=== PATIENT | female | born 1950 | race Caucasian/White ===

== ENCOUNTER → 2017-01-26 | Outpatient (CLI) | payer MEDICARE, BC ==
--- NOTE | 2017-01-26 12:00 | BD ---
EXAMINATION TYPE: MG DEXA axial skeleton. DATE OF EXAM: 01/26/2017 COMPARISON: 07.12.2012 CLINICAL HISTORY: Z13.820 OSTEOPOROSIS Height: 58.3 IN Weight: 114 LBS FRAX RISK QUESTIONS: Alcohol (3 or more units per day): NO Family History (Parent hip fracture): UNKNOWN Glucocorticoids (More than 3mos): NO (Ex: prednisone, prednisolone, methylprednisolone, dexamethasone, and hydrocortisone). History of Fracture in Adulthood: NO Secondary Osteoporosis: NO 1. Type 1 Diabetes: NO 2. Hyperthyroidism: NO 3. Menopause before 45: NO 4. Malnutrition: NO 5. Chronic liver disease: NO Rheumatoid Arthritis: NO Current Tobacco Use: NO RISK FACTORS HISTORY OF: Family History of Osteoporosis: UNSURE Active: YES Diet low in dairy products/other sources of calcium: NO Postmenopausal woman: 45 YRS OLD Hyperparathyroidism: NO Adrenal Insufficiency: NO MEDICATIONS: Osteoporosis Medications: TOOK FOSAMAX FOR 7 YRS QUIT ABOUT 10 YRS AGO Additional Medications: HX OF CHEMO AND RADIATION [id number], VIT D, STATINS FOR CHOLESTEROL Additional History: HX OF ENDOMETRIAL/UTERINE CA , DIABETIC (DIET CONTROL) EXAM MEASUREMENTS: Bone mineral densitometry was performed using the [employer] System. Bone mineral density as measured about the Lumbar spine is: ----- L1-L4(G/cm2): 1.511 T Score Values are as follows: ----- L1: 0.9 ----- L2: 2.2 ----- L3: 4.2 ----- L4: 3.2 ----- L1-L4: 2.8 Bone mineral density has: Increased 8.1% since study of: 07.12.2012 Bone mineral density about the R hip (g/cm2): 0.942 Bone mineral density about the L hip (g/cm2): 0.954 T Score values are as follows: -----R Neck: -1.8 -----L Neck: -1.9 -----R Total: -0.5 -----L Total: -0.4 Bone mineral density has: Decreased -3.7% since study of: 07.12.2012 FRAX %'S: THERE IS A 10.8% CHANCE OF A MAJOR OSTEOPOROTIC FX AND A 1.8% CHANCE FOR A HIP FX...... PROBABILITY IN 10 YRS TIME IMPRESSION: Osteopenia (T Score between -2.5 and -1 as noted by T score values There is slightly increased risk of fracture and the patient may be considered for treatment. Re-Screen 2-5 years FOR BOTH OF HER HIPS AT THE NECK BOTH RT AND LT. 10 YEAR MAJOR OSTEOPOROTIC FRACTURE RISK: 10.8%. HIP FRACTURE RISK: 1.8%. NOTE: T-SCORE=SD OF THE YOUNG ADULT MEAN.
--- NOTE | 2017-01-30 07:23 | MM ---
Reason for exam: screening (asymptomatic). Last mammogram was performed 1 year and 1 month ago. History: Patient is postmenopausal, has history of endometrial cancer at age 60, history of other cancer, and is nulliparous. Family history of breast cancer in maternal aunt at age 70, breast cancer in mother at age 86, breast cancer in maternal aunt at age 60, and breast cancer in aunt. Physical Findings: A clinical breast exam by your physician is recommended on an annual basis and results should be correlated with mammographic findings. MG 3D Screening Mammo W/Cad Bilateral CC and MLO view(s) were taken. Prior study comparison: January 06, 2016, bilateral MG 3d screening mammo w/cad. June 21, 2015, left breast MG 3d diag mammo w/cad LT. The breast tissue is heterogeneously dense. This may lower the sensitivity of mammography. No significant changes when compared with prior studies. ASSESSMENT: Negative, BI-RAD 1 RECOMMENDATION: Routine screening mammogram of both breasts in 1 year.
== END | disposition home or self-care (01) ==
LOC: RADMAMWWP 10:12
PROVIDERS: ATTEND Family Medicine
DX: Z12.31 Encounter for screening mammogram for malignant neoplasm of breast (principal); Z13.820 Encounter for screening for osteoporosis; M85.80 Other specified disorders of bone density and structure, unspecified site
CPT/HCPCS: 77080; 77063; G0202

== ENCOUNTER → 2018-01-28 | Outpatient (CLI) | payer MEDICARE, BC ==
--- NOTE | 2018-01-29 10:19 | MM ---
Reason for exam: screening (asymptomatic). Last mammogram was performed 1 year ago. History: Patient is postmenopausal, has history of endometrial cancer at age 60, history of other cancer, and is nulliparous. Family history of breast cancer in maternal aunt at age 70, breast cancer in mother at age 86, breast cancer in maternal aunt at age 60, and breast cancer in aunt. Physical Findings: A clinical breast exam by your physician is recommended on an annual basis and results should be correlated with mammographic findings. MG 3D Screening Mammo W/Cad Bilateral CC and MLO view(s) were taken. Prior study comparison: January 26, 2017, bilateral MG 3d screening mammo w/cad. January 06, 2016, bilateral MG 3d screening mammo w/cad. The breast tissue is extremely dense which could obscure a lesion on mammography. There is chronic nodularity bilaterally. There is no dominant lesion. No significant changes when compared with prior studies. ASSESSMENT: Benign, BI-RAD 2 RECOMMENDATION: Routine screening mammogram of both breasts in 1 year. Manage patient on a clinical basis.
== END | disposition home or self-care (01) ==
LOC: RADMAMWWP 11:12
PROVIDERS: ATTEND Obstetrics & Gynecology
DX: Z12.31 Encounter for screening mammogram for malignant neoplasm of breast (principal); Z80.3 Family history of malignant neoplasm of breast
CPT/HCPCS: 77063; 77067

== ENCOUNTER → 2019-01-29 | Outpatient (CLI) | payer MEDICARE, BC ==
--- NOTE | 2019-01-31 14:32 | MM ---
Reason for exam: screening (asymptomatic). Last mammogram was performed 1 year ago. History: Patient is postmenopausal, has history of endometrial cancer at age 60, history of other cancer, and is nulliparous. Family history of breast cancer in maternal aunt at age 70, breast cancer in mother at age 86, breast cancer in maternal aunt at age 60, and breast cancer in aunt. Physical Findings: A clinical breast exam by your physician is recommended on an annual basis and results should be correlated with mammographic findings. MG 3D Screening Mammo W/Cad Bilateral CC and MLO view(s) were taken. Prior study comparison: January 28, 2018, bilateral MG 3d screening mammo w/cad. January 26, 2017, bilateral MG 3d screening mammo w/cad. The breast tissue is extremely dense which could obscure a lesion on mammography. There is chronic nodularity bilaterally. No individual nodule is more suspicious than another. No significant changes when compared with prior studies. ASSESSMENT: Benign, BI-RAD 2 RECOMMENDATION: Routine screening mammogram of both breasts in 1 year.
== END | disposition home or self-care (01) ==
LOC: RADMAMWWP 10:51
PROVIDERS: ATTEND Obstetrics & Gynecology
DX: Z12.31 Encounter for screening mammogram for malignant neoplasm of breast (principal); Z80.3 Family history of malignant neoplasm of breast
CPT/HCPCS: 77063; 77067

== ENCOUNTER → 2020-03-09 | Outpatient (CLI) | payer MEDICARE, BC ==
--- NOTE | 2020-03-09 14:04 | MM ---
Reason for exam: screening (asymptomatic). Last mammogram was performed 1 year and 1 month ago. History: Patient is postmenopausal, has history of endometrial cancer at age 60, history of other cancer, and is nulliparous. Family history of breast cancer in maternal aunt at age 70, breast cancer in mother at age 86, breast cancer in maternal aunt at age 60, and breast cancer in aunt. Physical Findings: A clinical breast exam by your physician is recommended on an annual basis and results should be correlated with mammographic findings. MG 3D Screening Mammo W/Cad Bilateral CC and MLO view(s) were taken. Prior study comparison: January 29, 2019, bilateral MG 3d screening mammo w/cad. January 28, 2018, bilateral MG 3d screening mammo w/cad. The breast tissue is extremely dense which could obscure a lesion on mammography. There is no discrete abnormality. ASSESSMENT: Negative, BI-RAD 1 RECOMMENDATION: Routine screening mammogram of both breasts in 1 year.
== END | disposition home or self-care (01) ==
LOC: RADMAMWWP 11:04
PROVIDERS: ATTEND Obstetrics & Gynecology
DX: Z12.31 Encounter for screening mammogram for malignant neoplasm of breast (principal); Z80.3 Family history of malignant neoplasm of breast
CPT/HCPCS: 77063; 77067

== ENCOUNTER → 2021-05-16 | Outpatient (CLI) | payer MEDICARE, BC ==
--- NOTE | 2021-05-16 13:37 | BD ---
EXAMINATION TYPE: Axial Bone Density DATE OF EXAM: 05/16/2021 COMPARISON: 01.26.2017 CLINICAL HISTORY: 71 YR OLD FEMALE......CODE: M89.8 OTHER BD DISORDER ,Z85.42 CANCER Height: 58.3 Weight: 113 FRAX RISK QUESTIONS: Glucocorticoids (More than 3mos): IN THE PAST FOR 10 YRS, NONE NOW (Ex: prednisone, prednisolone, methylprednisolone, dexamethasone, and hydrocortisone). History of Fracture in Adulthood: YES Secondary Osteoporosis: YES 3. Menopause before 45: YES Current Tobacco Use: QUIT LONG AGO RISK FACTORS HISTORY OF: History of Wrist Fracture: HX OF LT WRIST FX, JANUARY 2021 Postmenopausal woman: YES, AT ABOUT 41 NATURAL Take estrogen and/or progesterone medications: YES, FOR ABOUT 7 YRS Hyperparathyroidism: NO Adrenal Insufficiency: NO MEDICATIONS: Prednisone or other steroids: ASTHMA, IN THE PAST, ALLERGIC TO STEROIDS NOW Osteoporosis Medications: IN THE PAST FOR ABOUT 10 YRS, NONE NOW Additional Medications: HX OF CHEMO AND RADIATION, 2010,2011, STATINS FOR CHOLESTEROL, Additional History: ENDOMETRIAL/UTERINE CANCER, DIABETIC, METFORMIN FOR ABOUT 10 YRS NONE NOW, DIET C ONTROLLED, STATIN FOR CHOLESTEROL, VIT D AND CALCIUM EXAM MEASUREMENTS: Bone mineral densitometry was performed using the [employer] System. Bone mineral density as measured about the Lumbar spine is: ----- L1-L4(G/cm2): 1.599 T Score Values are as follows: ----- L1: 1.9 ----- L2: 3.3 ----- L3: 4.7 ----- L4: 4.0 ----- L1-L4: 3.5 Bone mineral density has: Increased 5.5% since study of: 01.26.2017 Bone mineral density about the R hip (g/cm2): 0.969 Bone mineral density about the L hip (g/cm2): 1.004 T Score values are as follows: -----R Neck: -1.6 -----L Neck: -1.8 -----R Total: -0.3 -----L Total: 0.0 Bone mineral density has: Increased 4.1% since study of: 01.26.2017 FRAX%s: THERE IS A 26.4% CHANCE FOR A MAJOR OSTEOPOROTIC FX AND A 6.2% FOR HIP......PROBABILITY FO R FX IN 10 YRS TIME IMPRESSION: No evidence for osteoporosis or osteopenia NOTE: T-SCORE=SD OF THE YOUNG ADULT MEAN.
--- NOTE | 2021-05-17 13:58 | MM ---
Reason for exam: screening (asymptomatic). Last mammogram was performed 1 year and 2 months ago. History: Patient is postmenopausal, has history of endometrial cancer at age 60, history of other cancer, and is nulliparous. Family history of breast cancer in maternal aunt at age 70, breast cancer in mother at age 86, breast cancer in maternal aunt at age 60, and breast cancer in aunt. Took hormonal contraceptives for 7 years. Physical Findings: A clinical breast exam by your physician is recommended on an annual basis and results should be correlated with mammographic findings. MG 3D Screening Mammo W/Cad Bilateral CC and MLO view(s) were taken. Prior study comparison: March 09, 2020, bilateral MG 3d screening mammo w/cad. January 29, 2019, bilateral MG 3d screening mammo w/cad. The breast tissue is extremely dense which could obscure a lesion on mammography. There is chronic nodularity bilaterally. No significant changes when compared with prior studies. ASSESSMENT: Benign, BI-RAD 2 RECOMMENDATION: Routine screening mammogram of both breasts in 1 year. Patient should continue monthly self breast exams. A negative report should not preclude additional follow up of suspicious palpable abnormalities.
== END | disposition home or self-care (01) ==
LOC: RADMAMWWP 10:02
PROVIDERS: ATTEND Family Medicine
DX: Z12.31 Encounter for screening mammogram for malignant neoplasm of breast (principal); M89.8X8 Other specified disorders of bone, other site; Z85.42 Personal history of malignant neoplasm of other parts of uterus
CPT/HCPCS: 77063; 77067; 77080

== ENCOUNTER → 2022-05-17 | Outpatient (CLI) | payer MEDICARE, BC ==
--- NOTE | 2022-05-18 19:06 | MM ---
Reason for Exam: Screening (asymptomatic). Last screening mammogram was performed 12 month(s) ago. Patient History: Menarche at age 8. Patient has no children. Left ovary removed at age 60. Right ovary removed at age 60. Hysterectomy at age 60. Postmenopausal. Other cancer. Endometrial cancer, age 60. Patient used Hormonal Contraceptives for 7 years. Maternal aunt had breast cancer, age 70. Maternal aunt had breast cancer. Maternal aunt had breast cancer, age 60. Mother had breast cancer, age 86. Risk Values: Nidhi 5 year model risk: 3.8%. NCI Lifetime model risk: 8.6%. Prior Study Comparison: 01/06/2016 Bilateral Screening Mammogram, [facility]. 01/26/2017 Bilateral Screening Mammogram, [facility]. 01/28/2018 Bilateral Screening Mammogram, [facility]. 01/29/2019 Bilateral Screening Mammogram, [facility]. 03/09/2020 Bilateral Screening Mammogram, [facility]. 05/16/2021 Bilateral Screening Mammogram, [facility]. Tissue Density: The breast tissue is heterogeneously dense. This may lower the sensitivity of mammography. Findings: Analyzed By CAD. There is chronic nodularity on both sides. There is no suspicious group of microcalcifications or new suspicious mass in either breast. Overall Assessment: Benign, BI-RAD 2 Management: Screening Mammogram of both breasts in 1 year. 1. Patient should continue monthly self breast exams. 2. A clinical breast exam by your physician is recommended on an annual basis. This exam should not preclude additional follow-up of suspicious palpable abnormalities. 3. Note that per NCCN guidelines, a five-year risk assessment greater than 1.67% is used to assess eligibility for a risk reducing agent. Electronically signed and approved by: Jasper Valencia M.D. Radiologist
== END | disposition home or self-care (01) ==
LOC: RADMAMWWP 09:55
PROVIDERS: ATTEND Family Medicine
DX: Z12.31 Encounter for screening mammogram for malignant neoplasm of breast (principal); Z78.0 Asymptomatic menopausal state; Z80.3 Family history of malignant neoplasm of breast
CPT/HCPCS: 77063; 77067

== ENCOUNTER → 2022-12-11 | Outpatient (CLI) | payer MEDICARE, BC ==
[2022-12-11 19:51] LABS: HCT 43.6 % (37.2-46.3); HGB 13.8 g/dL (12.0-15.0); MCH 28.5 pg (27.0-32.0); MCHC 31.7 g/dL (32.0-37.0); MCV 89.9 fL (80.0-97.0); Mean Platelet Volume 10.3 fL (9.5-12.2); NRBC Per 100 WBC 0 /100 WBCS (0.0-0.0); Platelet Count 219 X 10*3/uL (140-440); RBC 4.85 X 10*6/uL (4.10-5.20); RDW 13.2 % (11.5-14.5); WBC 5.58 X 10*3/uL (4.50-10.00)
[2022-12-11 20:40] LABS: T4, Free (Free Thyroxine) 1.52 ng/dL (0.800-1.800)
[2022-12-11 20:45] LABS: % Iron Saturation 23.76 (12.00-45.00); African American GFR (CKD) 93.9 (60.0-200.0); Albumin 4.5 g/dL (3.8-4.9); Albumin/Globulin Ratio 1.85 (1.60-3.17); Anion Gap 11.9 mmol/L (10.00-18.00); BUN/Creat Ratio 28.59 Ratio (12.00-20.00); Blood Urea Nitrogen 20.9 mg/dL (9.0-27.0); Calcium 9.7 mg/dL (8.7-10.3); Carbon Dioxide 26.3 mmol/L (20.0-27.5); Globulin 2.4 g/dL (1.6-3.3); Potassium 4.8 mmol/L (3.5-5.5); Total Bilirubin 0.4 mg/dL (0.30-1.20)
== END | disposition home or self-care (01) ==
LOC: LABWHC1 13:06
PROVIDERS: ATTEND Psychiatry & Neurology Neurology
DX: G62.9 Polyneuropathy, unspecified (principal); E61.1 Iron deficiency; R53.83 Other fatigue
CPT/HCPCS: 36415; 80053; 82607; 82728; 83540; 83550; 84207; 84439; 84443; 84466; 84481; 85027; 86334

== ENCOUNTER → 2023-06-11 | Outpatient (CLI) | payer MEDICARE, BC ==
--- NOTE | 2023-06-11 11:38 | MM ---
Reason for Exam: Screening (asymptomatic). Last mammogram was performed 1 year(s) and 1 month(s) ago. Patient History: Menarche at age 8. Patient has no children. Left ovary removed at age 60. Right ovary removed at age 60. Hysterectomy at age 60. Postmenopausal. Previous chemotherapy at age 60. Patient used Hormonal Contraceptives for 7 years. Maternal aunt had breast cancer, age 70. Maternal aunt had breast cancer. Maternal aunt had breast cancer, age 60. Mother had breast cancer, age 86. Risk Values: Nidhi 5 year model risk: 3.8%. NCI Lifetime model risk: 8.1%. Prior Study Comparison: 03/09/2020 Bilateral Screening Mammogram, [facility]. 05/16/2021 Bilateral Screening Mammogram, [facility]. 05/17/2022 Bilateral MG 3D screening mammo w/cad, [facility]. Tissue Density: The breast tissue is heterogeneously dense. This may lower the sensitivity of mammography. Findings: Analyzed By CAD. There is no suspicious group of microcalcifications or new suspicious mass. Overall Assessment: Negative, BI-RAD 1 Management: Screening Mammogram of both breasts in [address] [facility] will attempt to contact patient to return for supplemental views and ultrasound if indicated. Patient should continue monthly self-breast exams. A clinical breast exam by your physician is recommended on an annual basis. This exam should not preclude additional follow-up of suspicious palpable abnormalities. Note on Nidhi scores and lifetime risk: 1. A Nidhi score greater than 3% is considered moderate risk. If this is the case, consider specialist referral to assess eligibility for a risk reducing agent. 2. If overall lifetime risk for the development of breast cancer is 20% or higher, the patient may qualify for future screening with alternating mammogram and breast MRI. Electronically signed and approved by: Silverio Whiting DO
== END | disposition home or self-care (01) ==
LOC: RADMAMWWP 10:17
PROVIDERS: ATTEND Family Medicine
DX: Z12.31 Encounter for screening mammogram for malignant neoplasm of breast (principal); Z78.0 Asymptomatic menopausal state; Z80.3 Family history of malignant neoplasm of breast
CPT/HCPCS: 77063; 77067

== ENCOUNTER → 2024-06-13 | Outpatient (CLI) | payer MEDICARE, BC ==
--- NOTE | 2024-06-16 17:49 | MM ---
Reason for Exam: Screening (asymptomatic). Last screening mammogram was performed 12 month(s) ago. Patient History: Menarche at age 8. Patient has no children. Left ovary removed at age 60. Right ovary removed at age 60. Hysterectomy at age 60. Postmenopausal. Previous chemotherapy at age 60. Patient used Hormonal Contraceptives for 7 years. Paternal aunt had breast cancer, age 70. Paternal aunt had breast cancer. Paternal aunt had breast cancer, age 60. Mother had breast cancer, age 86. Risk Values: Nidhi 5 year model risk: 3.8%. NCI Lifetime model risk: 7.6%. Prior Study Comparison: 05/16/2021 Bilateral Screening Mammogram, [facility]. 05/17/2022 Bilateral MG 3D screening mammo w/cad, [facility]. 06/11/2023 Bilateral MG 3D screening mammo w/cad, [facility]. Tissue Density: The breasts are heterogeneously dense, which may obscure small masses. Findings: Analyzed By CAD. Areas of asymmetric density are unchanged. There is no suspicious group of microcalcifications or new suspicious mass in either breast. Overall Assessment: Benign, BI-RAD 2 Management: Screening Mammogram of both breasts in 1 year. See note below in regards to patient's increased 5 year Nidhi score. Patient should continue monthly self-breast exams. A clinical breast exam by your physician is recommended on an annual basis. This exam should not preclude additional follow-up of suspicious palpable abnormalities. Note on Nidhi scores and lifetime risk: 1. A Nidhi score greater than 3% is considered moderate risk. If this is the case, consider specialist referral to assess eligibility for a risk reducing agent. 2. If overall lifetime risk for the development of breast cancer is 20% or higher, the patient may qualify for future screening with alternating mammogram and breast MRI. [facility], , 06/16/2024 5:46 PM. Electronically signed and approved by: Jasper Valencia M.D. Radiologist
== END | disposition home or self-care (01) ==
LOC: RADMAMWWP 10:59
PROVIDERS: ATTEND Family Medicine
DX: Z12.31 Encounter for screening mammogram for malignant neoplasm of breast (principal); Z78.0 Asymptomatic menopausal state; Z80.3 Family history of malignant neoplasm of breast; Z90.722 Acquired absence of ovaries, bilateral; R92.333 Mammographic heterogeneous density, bilateral breasts
CPT/HCPCS: 77063; 77067